=== PATIENT | female | born 1945 | race Asian ===

== ENCOUNTER → 2017-08-29 | Outpatient (CLI) | payer MEDICARE, MEDICAID ==
[~2017-08-29] MED LIST: ASCO-316 PO; ATOR10TA PO; CALC0.253 PO; CELL2 PO; CINA60 PO; MAG OXIDE PO; METO25TA6 PO; MULT-1030 PO; NIFE30TA83 PO; OMEG1CAP49 PO; OMEP20TA2 PO; PRED5TAB PO; PROG1 PO
== END | disposition home or self-care (01) ==
LOC: US 12:25
DX: M79.605 Pain in left leg (principal); M79.604 Pain in right leg; K21.9 Gastro-esophageal reflux disease without esophagitis; E78.5 Hyperlipidemia, unspecified; I12.9 Hypertensive chronic kidney disease with stage 1 through stage 4 chronic kidney disease, or unspecified chronic kidney disease; N18.9 Chronic kidney disease, unspecified
CPT/HCPCS: 93970